=== PATIENT | male | born 1975 | race Caucasian/White ===

== ENCOUNTER 2024-11-03 06:16 | Day surgery (SDC) | payer OTHER ==
[~2024-11-03] VITALS: Ht 188 cm; Wt 86.8 kg
[~2024-11-03 06:16] MED LIST: AMLO5TAB66 PO; METH-812 PO; MIRT-92 PO; SODIUM CHLORIDE 0.9% 1,000 ML ONE; TAMS0.4C94 PO
[2024-11-03] MEDS: SODIUM CHLORIDE 0.9% 1,000 ML IV ONE (07:00)
[2024-11-03] MEDS ORDERED: FLUMAZENIL 0.1 MG/ML 5 ML VIAL IVP ONE (07:52)
[2024-11-03] MEDS ORDERED: DiphenhydrAMINE HCL 50 MG/ML VIAL ONE (07:52)
[2024-11-03] MEDS ORDERED: NALOXONE HCL 0.4 MG/ML VIAL ONE (07:52)
[2024-11-03] MEDS ORDERED: SODIUM TETRADECYL SULFATE 3% 60 MG/2 ML VIAL IVP ONE (07:53)
[2024-11-03] MEDS ORDERED: EPINEPHrine 1:10,000 [1 MG/10 ML] SYRINGE ONE (07:53)
[2024-11-03] MEDS ORDERED: ATROPINE SULFATE 0.1 MG/ML 10 ML SYRINGE IVP ONE (07:53)
[2024-11-03] MEDS ORDERED: OXYGEN THERAPY IH SCH (09:00)
[2024-11-03] MEDS ORDERED: LIDOCAINE/PF 2% 5 ML VIAL IM ONE (12:00)
[2024-11-03] MEDS ORDERED: PROPOFOL 1% 20 ML VIAL IVP ONE (12:00)
== END 2024-11-03 10:10 | disposition home or self-care (01) ==
LOC: SURGERY 06:16
PROVIDERS: ATTEND Specialist
DX: K62.5 Hemorrhage of anus and rectum (principal); K63.5 Polyp of colon; K64.0 First degree hemorrhoids; I10 Essential (primary) hypertension; Z86.0100 Personal history of colon polyps, unspecified; Z87.19 Personal history of other diseases of the digestive system; Z79.899 Other long term (current) drug therapy
CPT/HCPCS: 45385; 45398; 88305; J2704; J3490 ×2; J7030; J0171; J0461; J1200; J2310